=== PATIENT | female | born 1965 | race Caucasian/White ===

== ENCOUNTER 2021-01-01 14:42 | Emergency (ER) | payer BC ==
[2021-01-01] MEDS ORDERED: ENDOCET 5-3251 EACH PO ×2 (16:52→16:55)
== END 2021-01-01 17:05 | disposition home or self-care (01) ==
LOC: ER1 14:42
DX: S83.91XA Sprain of unspecified site of right knee, initial encounter (principal); X50.1XXA Overexertion from prolonged static or awkward postures, initial encounter; Y92.009 Unspecified place in unspecified non-institutional (private) residence as the place of occurrence of the external cause
CPT/HCPCS: 29530; 73562; 99283

== ENCOUNTER → 2021-01-02 | Outpatient (CLI) | payer BC ==
[~2021-01-02] MED LIST: ENDOCET 5-3251 EACH PO
== END ==
LOC: CT 13:57
DX: S82.141A Displaced bicondylar fracture of right tibia, initial encounter for closed fracture (principal); X58.XXXA Exposure to other specified factors, initial encounter
CPT/HCPCS: 73700